=== PATIENT | female | born 1935 | race Caucasian/White ===

== ENCOUNTER 2017-02-12 13:38 | Inpatient (IN) | payer BC, OTHER ==
[~2017-02-12] VITALS: Ht 157.5 cm; Wt 45.5 kg
[2017-02-12 15:07] LABS: Basophils # (auto) 0 uL; Basophils % (auto) 0.2 % (0.0-2.0); Eosinophils # (auto) 0 uL; Eosinophils % (auto) 0.2 % (0.0-7.0); Hematocrit 37.8 % (36.0-46.0); Hemoglobin 12.9 g/dL (12.2-16.2); Lymphocytes % (auto) 9.2 % (10.0-50.0); Mean Corpuscular Hemoglobin 31.3 pg (28.0-32.0); Monocytes % (auto) 9.7 % (0.0-12.0); Neutrophils # (auto) 8.5 uL; Neutrophils % (auto) 80.7 % (37.0-80.0); Platelet Count (auto) 224 10^3/uL (140-450); Red Blood Cells 4.11 10^6/uL (4.0-5.20); Red Cell Distribution Width 13.1 % (11.8-14.3); White Blood Cell 10.5 10^3/uL (4.4-10.8)
[2017-02-12 15:25] LABS: Albumin 2.9 g/dL (3.4-5.0); BUN/Creatinine Ratio 24.5; Bilirubin, Total 0.3 mg/dL (0.2-1.0); Calcium 7.8 mg/dL (8.5-10.1); Magnesium 2.1 mg/dL (1.6-2.6); Potassium 3.5 mmol/L (3.5-5.1); Total Protein 6.5 g/dL (6.4-8.2)
[2017-02-12] MEDS ORDERED: SODIUM CHLORIDE 0.9% 1,000 ML IV ONE (15:57)
[2017-02-12] MEDS ORDERED: METOPROLOL TARTRATE 1MG/1ML-5ML VIAL IV ONE (16:00)
[2017-02-12 16:39] LABS: INR 0.99 (0.9-1.15); Partial Thromboplastin Time 29.5 sec (22.64-33.71); Prothrombin Time 10.8 sec (9.37-12.3)
[2017-02-12] MEDS ORDERED: MORPHINE SULF INJ 2 MG/ML SYRINGE 1ML IV PRN (17:45)
[2017-02-12] MEDS ORDERED: MORPHINE SULFATE 4 MG/ML SYR/VIAL IV PRN (17:45)
[2017-02-12] MEDS ORDERED: AMIODARONE HCL 900 MG in DEXTROSE 500 ML IV SCH ×2 (17:45→23:45)
[2017-02-12] MEDS ORDERED: HYDROcodone-ACET 5/325MG TAB PO PRN (17:45)
[2017-02-12] MEDS ORDERED: LACTULOSE 20Gm/30ML SOLN PO PRN (17:45)
[2017-02-12] MEDS ORDERED: PROMETHAZINE HCL 25 MG/ML 1ML IV PRN (17:45)
[2017-02-12] MEDS ORDERED: LORazepam 0.5 MG TAB PO PRN (17:45)
[2017-02-12] MEDS ORDERED: AMIODARONE HCL 150 MG in D5W 5% 100 ML IV ONE (17:45)
[2017-02-12] MEDS ORDERED: NITROGLYCERIN 0.4 MG SL TAB SL PRN (17:45)
[2017-02-12] MEDS: NITROGLYCERIN 0.2MG/HR TOPICAL PATCH TD SCH (18:11)
[2017-02-12] MEDS: ASPirin 81 mg TAB PO SCH (18:11)
[2017-02-12] MEDS: ENOXAPARIN SOD 60 MG/0.6 ML SYRINGE SC SCH (19:45)
[2017-02-12] MEDS ORDERED: IOHEXOL 350 MG/ML 100ML IJ ONE (20:19)
[2017-02-12] MEDS: ATORVASTATIN 20 MG TAB PO SCH (22:13)
[2017-02-12] MEDS: SODIUM CHLOR 0.9% PF (SALINE LOCK) 10ML VIAL IV SCH (22:13)
[2017-02-12] MEDS: METOPROLOL TARTRATE 25 MG TAB PO SCH (22:13)
[2017-02-13] MEDS: ACETAMINOPHEN 500 MG TAB PO PRN (01:22)
[2017-02-13] MEDS: TEMAZEPAM 15 MG CAP PO PRN (01:22)
[2017-02-13] MEDS ORDERED: methylPREDNISolone SOD SUCC 125 MG/2 ML VL ONE (01:59)
[2017-02-13] MEDS ORDERED: methylPREDNISolone SOD SUCC 125 MG/2 ML VL IV ONE (02:00)
[2017-02-13] MEDS ORDERED: FUROSEMIDE 20 MG/2 ML VIAL ONE (02:04)
[2017-02-13] MEDS ORDERED: FUROSEMIDE 20 MG/2 ML VIAL IV ONE (02:15)
[2017-02-13] MEDS: IPRATROPIUM BROM 0.5 MG/2.5ML INH SOL NEB SCH ×4 (02:53→18:45)
[2017-02-13] MEDS: ALBUTEROL SULF 2.5 MG/0.5ML(0.5%) NEB SOLN NEB SCH ×2 (02:53→06:02)
[2017-02-13 05:22] LABS: Urine Bacteria NONE SEEN /hpf (None Seen); Urine Blood Negative /uL (Negative); Urine WBC 1 /hpf (0 - 5)
[2017-02-13] MEDS: SODIUM CHLOR 0.9% PF (SALINE LOCK) 10ML VIAL IV SCH ×3 (06:00→22:20)
[2017-02-13] MEDS: ENOXAPARIN SOD 60 MG/0.6 ML SYRINGE SC SCH ×2 (06:01→19:43)
[2017-02-13 08:49] VITALS: BP 125/75
[2017-02-13] MEDS ORDERED: ENOXAPARIN SOD 40 MG/0.4 ML SYRINGE SC SCH (10:00)
[2017-02-13] MEDS: ASPirin 81 mg TAB PO SCH (10:21)
[2017-02-13] MEDS: METOPROLOL TARTRATE 25 MG TAB PO SCH (10:21)
[2017-02-13] MEDS ORDERED: POTASSIUM CHL 20 Meq TABLET PO ONE (12:15)
[2017-02-13 12:41] LABS: BUN/Creatinine Ratio 18.9; Calcium 7.8 mg/dL (8.5-10.1); Potassium 3.2 mmol/L (3.5-5.1)
[2017-02-13] MEDS ORDERED: AZITHROMYCIN 500MG/ 250ML 250 ML IV SCH (14:05)
[2017-02-13] MEDS: cefTRIAXone 1GM/10ml IVPUSH 10 ML IV SCH (14:34)
[2017-02-13 17:30] VITALS: BP 127/76
[2017-02-13] MEDS: NITROGLYCERIN 0.2MG/HR TOPICAL PATCH TD SCH (18:00)
[2017-02-13] MEDS: CARVEDILOL 3.125 MG TAB PO SCH ×2 (20:24→22:00)
[2017-02-13 22:00] VITALS: BP 112/68
[2017-02-13] MEDS: ATORVASTATIN 20 MG TAB PO SCH (22:19)
[2017-02-14] MEDS: TEMAZEPAM 15 MG CAP PO PRN (00:25)
[2017-02-14] MEDS: IPRATROPIUM BROM 0.5 MG/2.5ML INH SOL NEB SCH ×3 (00:28→12:25)
[2017-02-14 05:00] VITALS: BP 131/91
[2017-02-14] MEDS: SODIUM CHLOR 0.9% PF (SALINE LOCK) 10ML VIAL IV SCH (06:00)
[2017-02-14] MEDS: ENOXAPARIN SOD 60 MG/0.6 ML SYRINGE SC SCH (06:51)
[2017-02-14 08:00] VITALS: BP 153/94
[2017-02-14 08:46] VITALS: BP 153/94
[2017-02-14 08:48] VITALS: BP 153/94
[2017-02-14] MEDS: cefTRIAXone 1GM/10ml IVPUSH 10 ML IV SCH (09:00)
[2017-02-14] MEDS: CARVEDILOL 3.125 MG TAB PO SCH (09:40)
[2017-02-14] MEDS: ASPirin 81 mg TAB PO SCH (09:41)
[2017-02-14] MEDS: ACETAMINOPHEN 500 MG TAB PO PRN (09:41)
[2017-02-15] MEDS ORDERED: AZITHROMYCIN 250 MG TAB PO SCH (10:00)
== END 2017-02-14 12:45 | disposition home or self-care (01) | DRG 191 ==
LOC: ER 13:50 → TELE 13:51 → TELE-CENTR 02-13 17:26
PROVIDERS: ADMIT Internal Medicine; ATTEND Internal Medicine
DX: J44.0 Chronic obstructive pulmonary disease with (acute) lower respiratory infection (principal); E44.0 Moderate protein-calorie malnutrition; I44.7 Left bundle-branch block, unspecified; I47.1 Supraventricular tachycardia; Z68.1 Body mass index [BMI] 19.9 or less, adult; J20.9 Acute bronchitis, unspecified; I10 Essential (primary) hypertension; J44.1 Chronic obstructive pulmonary disease with (acute) exacerbation; I25.10 Atherosclerotic heart disease of native coronary artery without angina pectoris; M19.90 Unspecified osteoarthritis, unspecified site; Z95.0 Presence of cardiac pacemaker; Z79.82 Long term (current) use of aspirin; Z79.899 Other long term (current) drug therapy; Z87.891 Personal history of nicotine dependence
CPT/HCPCS: 36415; 51702; 71010; 71020; 71275; 80048; 80053; 80061; 81001; 82550; 83735; 83880; 84443; 84484; 85025; 85379; 85610; 85652; 85730; 86141; 87400; 93005; 93306; 94640; 94761; 96372; 96374; 96375; 96376; J7060

== ENCOUNTER 2017-06-28 03:40 | Inpatient (IN) | payer BC ==
[~2017-06-28] VITALS: Ht 149.9 cm; Wt 46.0 kg
[2017-06-28 07:25] LABS: INR 1.01 (0.9-1.15); Partial Thromboplastin Time 26.2 sec (22.64-33.71)
[2017-06-28 07:26] LABS: Basophils # (auto) 0 uL; Basophils % (auto) 0.4 % (0.0-2.0); Eosinophils # (auto) 0.1 uL; Hematocrit 34.1 % (36.0-46.0); Hemoglobin 11.6 g/dL (12.2-16.2); Lymphocytes # (auto) 0.7 uL; Lymphocytes % (auto) 9.3 % (10.0-50.0); Mean Corpuscular Hgb Conc. 33.9 g/dL (32.0-36.0); Mean Corpuscular Volume 91.3 fL (80.0-100.0); Monocytes # (auto) 0.5 uL; Monocytes % (auto) 6.3 % (0.0-12.0); Platelet Count (auto) 227 10^3/uL (140-450); Red Blood Cells 3.73 10^6/uL (4.0-5.20); Red Cell Distribution Width 13.6 % (11.8-14.3); White Blood Cell 7.2 10^3/uL (4.4-10.8)
[2017-06-28 07:28] LABS: Alanine Aminotransferase 51 U/L (13-56); Albumin 3.1 g/dL (3.4-5.0); Anion Gap 8 (5-15); Aspartate Aminotransferase 41 U/L (15-37); BUN/Creatinine Ratio 17.1; Blood Urea Nitrogen 12 mg/dL (7-18); Calcium 8.2 mg/dL (8.5-10.1); Carbon Dioxide 25 mmol/L (21-32); Chloride 108 mmol/L (98-107); GFR African American 103 mL/min; GFR Non-African American 85 mL/min; Glucose 108 mg/dL (74-106); Magnesium 2.1 mg/dL (1.6-2.6); Potassium 3.5 mmol/L (3.5-5.1); Sodium 141 mmol/L (136-145)
[2017-06-28 07:33] LABS: Alkaline Phosphatase 68 U/L (45-117); Bilirubin, Total 0.4 mg/dL (0.2-1.0); Total Protein 6.1 g/dL (6.4-8.2)
[2017-06-28] MEDS ORDERED: LEVOFLOXACIN 500MG 100 ML IV ONE (09:15)
[2017-06-28] MEDS ORDERED: ALBUTEROL SULF 2.5 MG/0.5ML(0.5%) NEB SOLN NEB ONE (09:15)
[2017-06-28] MEDS ORDERED: IPRATROPIUM BROM 0.5 MG/2.5ML INH SOL NEB ONE (09:15)
[2017-06-28] MEDS ORDERED: methylPREDNISolone SOD SUCC 125 MG/2 ML VL IV ONE (09:15)
[2017-06-28] MEDS ORDERED: AZITHROMYCIN 500MG/ 250ML 250 ML IV ONE (10:15)
[2017-06-28] MEDS ORDERED: FUROSEMIDE 40 MG/4 ML VIAL IV ONE (10:15)
[2017-06-28] MEDS ORDERED: cefTRIAXone 1GM/10ml IVPUSH 10 ML IV ONE (10:15)
[2017-06-28] MEDS ORDERED: POTASSIUM CHL 10 Meq TABLET PO ONE (10:15)
[2017-06-28] MEDS ORDERED: ALENDRONATE SODIUM 10 MG TAB PO SCH (10:15)
[2017-06-28] MEDS ORDERED: MORPHINE SULFATE 4 MG/ML SYR/VIAL IV PRN ×2 (10:30)
[2017-06-28] MEDS ORDERED: NITROGLYCERIN 0.4 MG SL TAB SL PRN (10:30)
[2017-06-28] MEDS ORDERED: ONDANSETRON HCL 4 MG/2 ML VIAL IV PRN (10:30)
[2017-06-28] MEDS ORDERED: ACETAMINOPHEN 325 MG TAB PO PRN (10:30)
[2017-06-28] MEDS ORDERED: DOCUSATE SOD 100 MG CAP PO PRN (10:30)
[2017-06-28] MEDS: MULTIPLE VITAMIN TAB PO SCH (11:01)
[2017-06-28] MEDS: FAMOTIDINE 20 MG TAB PO SCH (11:01)
[2017-06-28] MEDS: ALBUTEROL SULF 2.5 MG/0.5ML(0.5%) NEB SOLN NEB SCH ×2 (11:58→19:16)
[2017-06-28] MEDS: IPRATROPIUM BROM 0.5 MG/2.5ML INH SOL NEB SCH ×2 (11:58→19:16)
[2017-06-28] MEDS: SODIUM CHLOR 0.9% PF (SALINE LOCK) 10ML VIAL/SYR IV SCH ×2 (12:23→21:46)
[2017-06-28] MEDS: BOOST PLUS 8 ounce PO SCH ×2 (12:23→18:00)
[2017-06-28 14:08] LABS: Lactic Acid w/Reflex 2.4 mmol/L (0.4-2.0)
[2017-06-28 14:11] VITALS: BP 145/88
[2017-06-28 14:26] VITALS: BP 116/57
[2017-06-28] MEDS ORDERED: AMLO5TAB2 PO (14:34)
[2017-06-28] MEDS ORDERED: ATEN-60 PO (14:34)
[2017-06-28] MEDS ORDERED: HYDR-4683 PO (14:34)
[2017-06-28] MEDS ORDERED: ASPirin-EC 81 mg tab PO ONE (16:15)
[2017-06-28 16:45] VITALS: BP 118/68
[2017-06-28 21:21] VITALS: BP 116/63
[2017-06-28] MEDS: AMITRIPTYLINE HCL 25 MG TAB PO SCH (21:47)
[2017-06-28] MEDS: TEMAZEPAM 15 MG CAP PO PRN (21:47)
[2017-06-28] MEDS: ATORVASTATIN 20 MG TAB PO SCH (21:47)
[2017-06-28] MEDS: HYDROcodone-ACET 5/325MG TAB PO PRN (23:41)
[2017-06-29] MEDS: ALBUTEROL SULF 2.5 MG/0.5ML(0.5%) NEB SOLN NEB SCH ×4 (00:27→19:06)
[2017-06-29] MEDS: IPRATROPIUM BROM 0.5 MG/2.5ML INH SOL NEB SCH ×4 (00:27→19:06)
[2017-06-29 05:08] VITALS: BP 106/62
[2017-06-29 06:02] LABS: Basophils # (auto) 0 uL; Basophils % (auto) 0.2 % (0.0-2.0); Eosinophils # (auto) 0 uL; Eosinophils % (auto) 0.2 % (0.0-7.0); Hematocrit 31.3 % (36.0-46.0); Hemoglobin 10.8 g/dL (12.2-16.2); Lymphocytes # (auto) 0.9 uL; Lymphocytes % (auto) 14.5 % (10.0-50.0); Mean Corpuscular Hemoglobin 31.3 pg (28.0-32.0); Mean Corpuscular Hgb Conc. 34.4 g/dL (32.0-36.0); Mean Corpuscular Volume 91.2 fL (80.0-100.0); Monocytes # (auto) 0.6 uL; Monocytes % (auto) 10.1 % (0.0-12.0); Neutrophils # (auto) 4.7 uL; Nucleated Red Blood Cells % 0.1 %; Platelet Count (auto) 224 10^3/uL (140-450); Red Blood Cells 3.43 10^6/uL (4.0-5.20); Red Cell Distribution Width 13.8 % (11.8-14.3); White Blood Cell 6.3 10^3/uL (4.4-10.8)
[2017-06-29] MEDS: SODIUM CHLOR 0.9% PF (SALINE LOCK) 10ML VIAL/SYR IV SCH ×3 (06:04→21:35)
[2017-06-29 06:09] LABS: Calcium 8.7 mg/dL (8.5-10.1); Potassium 3.4 mmol/L (3.5-5.1)
[2017-06-29 06:12] LABS: BUN/Creatinine Ratio 17.5
[2017-06-29 06:14] LABS: Bilirubin, Total 0.2 mg/dL (0.2-1.0); Total Protein 5.8 g/dL (6.4-8.2)
[2017-06-29 08:00] VITALS: BP 119/75
[2017-06-29] MEDS: BOOST PLUS 8 ounce PO SCH ×2 (08:00→12:00)
[2017-06-29 08:53] VITALS: BP 119/75
[2017-06-29] MEDS: cefTRIAXone 1GM/10ml IVPUSH 10 ML IV SCH (08:59)
[2017-06-29] MEDS ORDERED: REGADENOSON 0.4 MG/5 ML SYRG IV ONE (09:45)
[2017-06-29] MEDS: POTASSIUM CHL 10 Meq TABLET PO SCH (10:00)
[2017-06-29] MEDS: ASPirin 81 mg TAB PO SCH (10:00)
[2017-06-29] MEDS: ASPirin-EC 81 mg tab PO SCH (10:00)
[2017-06-29] MEDS: FUROSEMIDE 40 MG/4 ML VIAL IV SCH (11:28)
[2017-06-29] MEDS: FAMOTIDINE 20 MG TAB PO SCH (11:28)
[2017-06-29] MEDS: AZITHROMYCIN 500MG/ 250ML 250 ML IV SCH (11:28)
[2017-06-29] MEDS: MULTIPLE VITAMIN TAB PO SCH (11:29)
[2017-06-29] MEDS: ATENOLOL 25 MG TAB PO SCH (11:29)
[2017-06-29 12:35] LABS: Urine Bacteria NONE SEEN /hpf (None Seen); Urine Blood Negative /uL (Negative); Urine Specific Gravity 1.008 (1.001-1.035); Urine WBC 1 /hpf (0 - 5)
[2017-06-29 13:00] VITALS: BP 127/77
[2017-06-29] MEDS ORDERED: POTASSIUM CHL 10 Meq TABLET PO ONE (13:15)
[2017-06-29] MEDS: HYDROcodone-ACET 5/325MG TAB PO PRN (16:23)
[2017-06-29 17:00] VITALS: BP 118/83
[2017-06-29 20:50] VITALS: BP 119/44
[2017-06-29] MEDS: TEMAZEPAM 15 MG CAP PO PRN (21:35)
[2017-06-29] MEDS: AMITRIPTYLINE HCL 25 MG TAB PO SCH (21:35)
[2017-06-29] MEDS: ATORVASTATIN 20 MG TAB PO SCH (21:35)
[2017-06-30] MEDS: HYDROcodone-ACET 5/325MG TAB PO PRN ×3 (00:13→22:24)
[2017-06-30] MEDS: IPRATROPIUM BROM 0.5 MG/2.5ML INH SOL NEB SCH ×5 (01:35→22:26)
[2017-06-30] MEDS: ALBUTEROL SULF 2.5 MG/0.5ML(0.5%) NEB SOLN NEB SCH ×5 (01:35→22:25)
[2017-06-30 04:57] VITALS: BP 98/59
[2017-06-30 06:09] LABS: Basophils # (auto) 0 uL; Basophils % (auto) 0.5 % (0.0-2.0); Eosinophils # (auto) 0.2 uL; Eosinophils % (auto) 3.1 % (0.0-7.0); Hematocrit 31.9 % (36.0-46.0); Lymphocytes % (auto) 29.2 % (10.0-50.0); Mean Corpuscular Hemoglobin 31.6 pg (28.0-32.0); Mean Corpuscular Hgb Conc. 34.4 g/dL (32.0-36.0); Mean Corpuscular Volume 91.6 fL (80.0-100.0); Monocytes # (auto) 0.6 uL; Monocytes % (auto) 9.4 % (0.0-12.0); Neutrophils # (auto) 3.9 uL; Neutrophils % (auto) 57.8 % (37.0-80.0); Nucleated Red Blood Cells % 0.2 %; Platelet Count (auto) 218 10^3/uL (140-450); Red Blood Cells 3.48 10^6/uL (4.0-5.20); Red Cell Distribution Width 14.2 % (11.8-14.3); White Blood Cell 6.8 10^3/uL (4.4-10.8)
[2017-06-30] MEDS: SODIUM CHLOR 0.9% PF (SALINE LOCK) 10ML VIAL/SYR IV SCH ×3 (06:09→21:37)
[2017-06-30 06:12] LABS: Calcium 8.8 mg/dL (8.5-10.1); Potassium 4.3 mmol/L (3.5-5.1)
[2017-06-30 06:14] LABS: BUN/Creatinine Ratio 19.2
[2017-06-30] MEDS: BOOST PLUS 8 ounce PO SCH ×4 (07:37→18:00)
[2017-06-30 07:39] VITALS: BP 111/69
[2017-06-30] MEDS: cefTRIAXone 1GM/10ml IVPUSH 10 ML IV SCH (09:06)
[2017-06-30] MEDS: MULTIPLE VITAMIN TAB PO SCH (09:07)
[2017-06-30] MEDS: ASPirin 81 mg TAB PO SCH (09:07)
[2017-06-30] MEDS: FAMOTIDINE 20 MG TAB PO SCH (09:07)
[2017-06-30] MEDS: ASPirin-EC 81 mg tab PO SCH (09:07)
[2017-06-30] MEDS: POTASSIUM CHL 10 Meq TABLET PO SCH (09:07)
[2017-06-30] MEDS: AZITHROMYCIN 500MG/ 250ML 250 ML IV SCH (09:07)
[2017-06-30] MEDS ORDERED: OPTISON 3ml Vial for INJ IV ONE (10:31)
[2017-06-30] MEDS: ATENOLOL 25 MG TAB PO SCH (11:14)
[2017-06-30] MEDS: FUROSEMIDE 40 MG/4 ML VIAL IV SCH (11:14)
[2017-06-30 11:16] VITALS: BP 103/76
[2017-06-30] MEDS: guaiFENesin 200 MG/10 ML UD GT PRN (17:12)
[2017-06-30 17:45] VITALS: BP 110/70
[2017-06-30 21:38] VITALS: BP 118/79
[2017-06-30] MEDS: AMITRIPTYLINE HCL 25 MG TAB PO SCH (21:38)
[2017-06-30] MEDS: ATORVASTATIN 20 MG TAB PO SCH (21:38)
[2017-06-30] MEDS: TEMAZEPAM 15 MG CAP PO PRN (21:38)
[2017-07-01] MEDS: HYDROcodone-ACET 5/325MG TAB PO PRN ×2 (04:28→21:48)
[2017-07-01 04:29] VITALS: BP 117/76
[2017-07-01] MEDS: SODIUM CHLOR 0.9% PF (SALINE LOCK) 10ML VIAL/SYR IV SCH ×3 (06:04→22:00)
[2017-07-01] MEDS: ALBUTEROL SULF 2.5 MG/0.5ML(0.5%) NEB SOLN NEB SCH ×3 (06:26→18:35)
[2017-07-01] MEDS: IPRATROPIUM BROM 0.5 MG/2.5ML INH SOL NEB SCH ×3 (06:26→18:35)
[2017-07-01] MEDS: BOOST PLUS 8 ounce PO SCH ×3 (08:00→18:00)
[2017-07-01 08:42] VITALS: BP 118/77
[2017-07-01] MEDS: FAMOTIDINE 20 MG TAB PO SCH (09:44)
[2017-07-01] MEDS: AZITHROMYCIN 500MG/ 250ML 250 ML IV SCH (09:44)
[2017-07-01] MEDS: ASPirin-EC 81 mg tab PO SCH (09:44)
[2017-07-01] MEDS: cefTRIAXone 1GM/10ml IVPUSH 10 ML IV SCH (09:44)
[2017-07-01] MEDS: MULTIPLE VITAMIN TAB PO SCH (09:45)
[2017-07-01] MEDS: POTASSIUM CHL 10 Meq TABLET PO SCH (09:46)
[2017-07-01] MEDS: ATENOLOL 25 MG TAB PO SCH (09:46)
[2017-07-01] MEDS: FUROSEMIDE 40 MG/4 ML VIAL IV SCH (10:03)
[2017-07-01 11:51] VITALS: BP 126/80
[2017-07-01] MEDS ORDERED: LIDOCAINE 2%HCL (LOCAL ANESTH.) INJ 20ML MDV ONE (12:31)
[2017-07-01] MEDS ORDERED: ANGIOMAX 250 MG VIAL IV ONE (13:31)
[2017-07-01] MEDS ORDERED: SODIUM CHL 0.9% 0 ML ONE (13:32)
[2017-07-01] MEDS ORDERED: MIDAZOLAM HCL 1MG/1ML-2 ML VIAL ONE (13:32)
[2017-07-01] MEDS ORDERED: fentaNYL CITRATE 100 MCG/2 ML VL ONE (13:32)
[2017-07-01] MEDS ORDERED: VERAPAMIL 2.5MG/ML INJ 2ML VIAL IV ONE (13:38)
[2017-07-01] MEDS ORDERED: HEPARIN 1,000 UNITS/ml 1ML VIAL ONE ×2 (13:59)
[2017-07-01 16:43] VITALS: BP 97/68
[2017-07-01] MEDS ORDERED: MORPHINE SULFATE 8mg/ml INJ SDV IV PRN ×2 (17:00)
[2017-07-01 20:00] VITALS: BP 110/75
[2017-07-01 21:37] VITALS: BP 110/75
[2017-07-01] MEDS: AMITRIPTYLINE HCL 25 MG TAB PO SCH (21:43)
[2017-07-01] MEDS: TEMAZEPAM 15 MG CAP PO PRN (21:43)
[2017-07-01] MEDS: ATORVASTATIN 20 MG TAB PO SCH (21:43)
[2017-07-02] VITALS (7 sets, daily range): BP systolic 104–122; BP diastolic 57–81
[2017-07-02] MEDS: ALBUTEROL SULF 2.5 MG/0.5ML(0.5%) NEB SOLN NEB SCH ×4 (01:30→19:50)
[2017-07-02] MEDS: IPRATROPIUM BROM 0.5 MG/2.5ML INH SOL NEB SCH ×4 (01:30→19:50)
[2017-07-02] MEDS: guaiFENesin 200 MG/10 ML UD GT PRN (02:28)
[2017-07-02] MEDS: SODIUM CHLOR 0.9% PF (SALINE LOCK) 10ML VIAL/SYR IV SCH ×3 (05:48→21:47)
[2017-07-02] MEDS: BOOST PLUS 8 ounce PO SCH ×3 (08:00→18:00)
[2017-07-02] MEDS: MULTIPLE VITAMIN TAB PO SCH (09:58)
[2017-07-02] MEDS: ATENOLOL 25 MG TAB PO SCH (10:00)
[2017-07-02] MEDS: FAMOTIDINE 20 MG TAB PO SCH (10:00)
[2017-07-02] MEDS: POTASSIUM CHL 10 Meq TABLET PO SCH (10:00)
[2017-07-02] MEDS: FUROSEMIDE 40 MG/4 ML VIAL IV SCH (10:00)
[2017-07-02] MEDS: ASPirin-EC 81 mg tab PO SCH (10:01)
[2017-07-02] MEDS: PANTOPRAZOLE 40 MG TAB PO SCH (12:13)
[2017-07-02] MEDS: ATORVASTATIN 20 MG TAB PO SCH (21:18)
[2017-07-02] MEDS: AMITRIPTYLINE HCL 25 MG TAB PO SCH (21:18)
[2017-07-02] MEDS: HYDROcodone-ACET 5/325MG TAB PO PRN (21:22)
[2017-07-02] MEDS: TEMAZEPAM 15 MG CAP PO PRN (22:55)
[2017-07-03] MEDS: IPRATROPIUM BROM 0.5 MG/2.5ML INH SOL NEB SCH ×4 (00:15→18:22)
[2017-07-03] MEDS: ALBUTEROL SULF 2.5 MG/0.5ML(0.5%) NEB SOLN NEB SCH ×4 (00:15→18:22)
[2017-07-03 05:00] VITALS: BP 90/51
[2017-07-03] MEDS: SODIUM CHLOR 0.9% PF (SALINE LOCK) 10ML VIAL/SYR IV SCH ×3 (05:53→21:59)
[2017-07-03 06:27] LABS: Basophils # (auto) 0.1 uL; Basophils % (auto) 0.8 % (0.0-2.0); Eosinophils # (auto) 0.3 uL; Eosinophils % (auto) 4.5 % (0.0-7.0); Hemoglobin 11.6 g/dL (12.2-16.2); Lymphocytes # (auto) 1.7 uL; Lymphocytes % (auto) 21.8 % (10.0-50.0); Mean Corpuscular Hemoglobin 31.6 pg (28.0-32.0); Mean Corpuscular Hgb Conc. 34.2 g/dL (32.0-36.0); Mean Corpuscular Volume 92.2 fL (80.0-100.0); Monocytes # (auto) 0.8 uL; Monocytes % (auto) 9.8 % (0.0-12.0); Neutrophils # (auto) 4.9 uL; Neutrophils % (auto) 63.1 % (37.0-80.0); Nucleated Red Blood Cells % 0.1 %; Platelet Count (auto) 260 10^3/uL (140-450); Red Blood Cells 3.69 10^6/uL (4.0-5.20); Red Cell Distribution Width 13.9 % (11.8-14.3); White Blood Cell 7.7 10^3/uL (4.4-10.8)
[2017-07-03 06:36] LABS: BUN/Creatinine Ratio 27.1; Calcium 8.5 mg/dL (8.5-10.1); Potassium 3.7 mmol/L (3.5-5.1)
[2017-07-03 07:54] VITALS: BP 118/77
[2017-07-03] MEDS: BOOST PLUS 8 ounce PO SCH ×3 (08:00→20:28)
[2017-07-03] MEDS: FAMOTIDINE 20 MG TAB PO SCH (10:00)
[2017-07-03] MEDS: ASPirin-EC 81 mg tab PO SCH (10:00)
[2017-07-03] MEDS: MULTIPLE VITAMIN TAB PO SCH (10:26)
[2017-07-03] MEDS: PANTOPRAZOLE 40 MG TAB PO SCH (10:27)
[2017-07-03] MEDS: ATENOLOL 25 MG TAB PO SCH (10:37)
[2017-07-03] MEDS: FUROSEMIDE 40 MG/4 ML VIAL IV SCH (10:38)
[2017-07-03] MEDS: POTASSIUM CHL 10 Meq TABLET PO SCH (10:38)
[2017-07-03 12:11] VITALS: BP 115/82
[2017-07-03 17:19] VITALS: BP 112/76
[2017-07-03 21:34] VITALS: BP 115/80
[2017-07-03] MEDS: SODIUM CHLORIDE 0.9% 1,000 ML IV SCH (21:59)
[2017-07-03] MEDS: TEMAZEPAM 15 MG CAP PO PRN (21:59)
[2017-07-03] MEDS: ATORVASTATIN 20 MG TAB PO SCH (21:59)
[2017-07-03] MEDS: AMITRIPTYLINE HCL 25 MG TAB PO SCH (22:00)
[2017-07-03] MEDS: HYDROcodone-ACET 5/325MG TAB PO PRN (22:00)
[2017-07-04] MEDS: ALBUTEROL SULF 2.5 MG/0.5ML(0.5%) NEB SOLN NEB SCH ×3 (00:10→11:05)
[2017-07-04] MEDS: IPRATROPIUM BROM 0.5 MG/2.5ML INH SOL NEB SCH ×3 (00:10→11:05)
[2017-07-04 04:47] VITALS: BP 95/67
[2017-07-04] MEDS: SODIUM CHLOR 0.9% PF (SALINE LOCK) 10ML VIAL/SYR IV SCH ×2 (05:40→15:00)
[2017-07-04 05:52] LABS: Basophils # (auto) 0 uL; Basophils % (auto) 0.6 % (0.0-2.0); Eosinophils # (auto) 0.3 uL; Eosinophils % (auto) 5.2 % (0.0-7.0); Hematocrit 33.5 % (36.0-46.0); Hemoglobin 11.5 g/dL (12.2-16.2); Lymphocytes # (auto) 1.6 uL; Lymphocytes % (auto) 25.7 % (10.0-50.0); Mean Corpuscular Hemoglobin 31.3 pg (28.0-32.0); Mean Corpuscular Hgb Conc. 34.3 g/dL (32.0-36.0); Mean Corpuscular Volume 91.1 fL (80.0-100.0); Monocytes # (auto) 0.6 uL; Monocytes % (auto) 10.5 % (0.0-12.0); Neutrophils # (auto) 3.5 uL; Nucleated Red Blood Cells % 0.1 %; Platelet Count (auto) 278 10^3/uL (140-450); Red Blood Cells 3.68 10^6/uL (4.0-5.20); Red Cell Distribution Width 13.8 % (11.8-14.3); White Blood Cell 6.1 10^3/uL (4.4-10.8)
[2017-07-04 06:06] LABS: INR 0.97 (0.9-1.15); Partial Thromboplastin Time 25.8 sec (23.78-33.04); Prothrombin Time 10.4 sec (9.27-12.13)
[2017-07-04 06:11] LABS: BUN/Creatinine Ratio 22.9; Calcium 8.5 mg/dL (8.5-10.1); Potassium 3.9 mmol/L (3.5-5.1)
[2017-07-04 08:00] VITALS: BP 118/79
[2017-07-04] MEDS: BOOST PLUS 8 ounce PO SCH ×2 (08:00→15:00)
[2017-07-04] MEDS ORDERED: IOHEXOL 350 MG/ML 100ML IJ ONE (08:51)
[2017-07-04] MEDS ORDERED: LIDOCAINE 2%HCL (LOCAL ANESTH.) INJ 20ML MDV ONE (08:52)
[2017-07-04 09:00] VITALS: BP 118/79
[2017-07-04] MEDS ORDERED: VANCOMYCIN 1GM/250ML 250 ML IV ONE ×2 (09:15→09:25)
[2017-07-04 10:00] VITALS: BP 118/79
[2017-07-04] MEDS: ATENOLOL 25 MG TAB PO SCH (10:00)
[2017-07-04] MEDS: ASPirin-EC 81 mg tab PO SCH (10:00)
[2017-07-04] MEDS: PANTOPRAZOLE 40 MG TAB PO SCH (10:00)
[2017-07-04] MEDS: MULTIPLE VITAMIN TAB PO SCH (10:00)
[2017-07-04] MEDS: POTASSIUM CHL 10 Meq TABLET PO SCH (10:00)
[2017-07-04] MEDS: FUROSEMIDE 40 MG/4 ML VIAL IV SCH (10:00)
[2017-07-04] MEDS: FAMOTIDINE 20 MG TAB PO SCH (10:00)
[2017-07-04] MEDS ORDERED: fentaNYL CITRATE 100 MCG/2 ML VL ONE (10:45)
[2017-07-04] MEDS ORDERED: VANCOMYCIN HCL 1000 MG VL ONE ×2 (10:45→10:52)
[2017-07-04] MEDS ORDERED: MIDAZOLAM HCL 1MG/1ML-2 ML VIAL ONE (10:45)
[2017-07-04] MEDS ORDERED: BACITRACIN INJ 50000 UNIT VIAL ONE (10:46)
[2017-07-04] MEDS: SODIUM CHLORIDE 0.9% 1,000 ML IV SCH (11:40)
[2017-07-04 14:23] VITALS: BP 118/79
== END 2017-07-04 17:00 | disposition home or self-care (01) | DRG 871 ==
LOC: EDBD 03:40 → ER 03:45 → TELE 03:46 → TELE-EAST 14:22
PROVIDERS: ADMIT Internal Medicine; ATTEND Internal Medicine
PROC: 4A023N7 Measurement of Cardiac Sampling and Pressure, Left Heart, Percutaneous Approach (ICD-10-PCS; principal; 2017-07-01)
PROC: B2111ZZ Fluoroscopy of Multiple Coronary Arteries using Low Osmolar Contrast (ICD-10-PCS; 2017-07-01)
DX: A41.9 Sepsis, unspecified organism (principal); I50.43 Acute on chronic combined systolic (congestive) and diastolic (congestive) heart failure; I44.2 Atrioventricular block, complete; J18.9 Pneumonia, unspecified organism; E44.0 Moderate protein-calorie malnutrition; J44.0 Chronic obstructive pulmonary disease with (acute) lower respiratory infection; E83.51 Hypocalcemia; I13.0 Hypertensive heart and chronic kidney disease with heart failure and stage 1 through stage 4 chronic kidney disease, or unspecified chronic kidney disease; I08.1 Rheumatic disorders of both mitral and tricuspid valves; I42.9 Cardiomyopathy, unspecified; J45.901 Unspecified asthma with (acute) exacerbation; J44.1 Chronic obstructive pulmonary disease with (acute) exacerbation; D63.8 Anemia in other chronic diseases classified elsewhere; N18.2 Chronic kidney disease, stage 2 (mild); I25.10 Atherosclerotic heart disease of native coronary artery without angina pectoris; F17.200 Nicotine dependence, unspecified, uncomplicated; E78.5 Hyperlipidemia, unspecified; Z88.0 Allergy status to penicillin; Z80.9 Family history of malignant neoplasm, unspecified; Z83.3 Family history of diabetes mellitus; Z82.49 Family history of ischemic heart disease and other diseases of the circulatory system; Z79.899 Other long term (current) drug therapy; Z95.810 Presence of automatic (implantable) cardiac defibrillator; Z68.20 Body mass index [BMI] 20.0-20.9, adult
CPT/HCPCS: 36415; 36600; 71045; 80048; 80053; 81001; 82805; 83605; 83735; 83880; 84484; 85025; 85610; 85730; 86850; 86900; 86901; 87040; 87086; 93005; 93306; 93458; 94640; 96365; 96375; 99152; 99291; J1956; J2250; Q9956

== ENCOUNTER 2017-07-04 21:02 | Inpatient (IN) | payer BC ==
[~2017-07-04] VITALS: Ht 149.9 cm; Wt 44.0 kg
[~2017-07-04 21:02] MED LIST: AMLO5TAB2 PO; ATEN-60 PO; HYDR-4683 PO
[2017-07-04] MEDS ORDERED: IPRATROPIUM BROM 0.5 MG/2.5ML INH SOL HHN ONE (21:30)
[2017-07-04] MEDS ORDERED: methylPREDNISolone SOD SUCC 125 MG/2 ML VL IV ONE ×2 (21:30)
[2017-07-04] MEDS ORDERED: ALBUTEROL SULF 2.5 MG/0.5ML(0.5%) NEB SOLN HHN ONE (21:30)
[2017-07-04] MEDS ORDERED: DILTIAZEM HCL 25 MG/5 ML VIAL IV ONE (21:30)
[2017-07-04] MEDS ORDERED: LORazepam 2MG/ML-1ML VIAL ONE (21:37)
[2017-07-04] MEDS ORDERED: METOPROLOL TARTRATE 1MG/1ML-5ML VIAL IV ONE ×2 (21:45→21:48)
[2017-07-04] MEDS ORDERED: LORazepam 2MG/ML-1ML VIAL IV ONE (21:45)
[2017-07-04 22:07] LABS: Alanine Aminotransferase 54 U/L (13-56); Albumin 3.4 g/dL (3.4-5.0); Anion Gap 9 (5-15); Aspartate Aminotransferase 28 U/L (15-37); BUN/Creatinine Ratio 20.2; Blood Urea Nitrogen 18 mg/dL (7-18); Calcium 8.5 mg/dL (8.5-10.1); Carbon Dioxide 24 mmol/L (21-32); Chloride 108 mmol/L (98-107); GFR African American 78 mL/min; GFR Non-African American 64 mL/min; Glucose 208 mg/dL (74-106); Magnesium 2.5 mg/dL (1.6-2.6); Sodium 141 mmol/L (136-145)
[2017-07-04 22:08] LABS: Lactic Acid w/Reflex 2.9 mmol/L (0.4-2.0)
[2017-07-04 22:10] LABS: Potassium 5.8 mmol/L (3.5-5.1)
[2017-07-04 22:12] LABS: Alkaline Phosphatase 84 U/L (45-117); Bilirubin, Total 0.4 mg/dL (0.2-1.0); Total Protein 6.9 g/dL (6.4-8.2)
[2017-07-04 22:24] LABS: Basophils # (auto) 0.1 uL; Basophils % (auto) 0.5 % (0.0-2.0); Eosinophils # (auto) 0.2 uL; Eosinophils % (auto) 1.6 % (0.0-7.0); Hematocrit 38.8 % (36.0-46.0); Hemoglobin 12.6 g/dL (12.2-16.2); Lymphocytes # (auto) 2.2 uL; Lymphocytes % (auto) 18.3 % (10.0-50.0); Mean Corpuscular Hemoglobin 30.4 pg (28.0-32.0); Mean Corpuscular Hgb Conc. 32.6 g/dL (32.0-36.0); Mean Corpuscular Volume 93.2 fL (80.0-100.0); Monocytes # (auto) 0.9 uL; Monocytes % (auto) 7.4 % (0.0-12.0); Neutrophils # (auto) 8.6 uL; Neutrophils % (auto) 72.2 % (37.0-80.0); Nucleated Red Blood Cells % 0.1 %; Platelet Count (auto) 339 10^3/uL (140-450); Red Blood Cells 4.16 10^6/uL (4.0-5.20); Red Cell Distribution Width 13.9 % (11.8-14.3); White Blood Cell 11.9 10^3/uL (4.4-10.8)
[2017-07-05] MEDS ORDERED: InsuLIN REG 1unit/0.01ml Soln (100units/ml) IV ONE (00:30)
[2017-07-05] MEDS ORDERED: NITROGLYCERIN 0.2MG/HR TOPICAL PATCH TD ONE (00:30)
[2017-07-05] MEDS ORDERED: DEXTROSE (50%) 50ML SYRG IV ONE (00:30)
[2017-07-05] MEDS ORDERED: ENALAPRILAT 1.25 MG/ML-1ML VIAL IV ONE (00:30)
[2017-07-05] MEDS ORDERED: FUROSEMIDE 20 MG/2 ML VIAL IV ONE ×2 (02:00→10:45)
[2017-07-05] MEDS ORDERED: ACETAMINOPHEN 500 MG TAB PO PRN (02:15)
[2017-07-05] MEDS ORDERED: MORPHINE SULFATE 4 MG/ML SYR/VIAL IV PRN ×2 (02:15)
[2017-07-05] MEDS ORDERED: ONDANSETRON HCL 4 MG/2 ML VIAL IV PRN (02:15)
[2017-07-05] MEDS ORDERED: LORazepam 2MG/ML-1ML VIAL IV PRN (02:15)
[2017-07-05] MEDS ORDERED: NITROGLYCERIN 0.4 MG SL TAB SL PRN (02:15)
[2017-07-05] MEDS ORDERED: HYDROcodone-ACET 5/325MG TAB PO PRN (02:15)
[2017-07-05 02:32] VITALS: BP 138/86
[2017-07-05 02:44] VITALS: BP 138/86
[2017-07-05 04:00] LABS: Urine Bacteria NONE SEEN /hpf (None Seen); Urine Blood Negative /uL (Negative); Urine Hyaline Cast FEW /lpf (0 - 2); Urine Specific Gravity 1.028 (1.001-1.035); Urine WBC 2 /hpf (0 - 5)
[2017-07-05 05:01] LABS: Basophils # (auto) 0.1 uL; Basophils % (auto) 0.5 % (0.0-2.0); Eosinophils # (auto) 0 uL; Hematocrit 34.7 % (36.0-46.0); Hemoglobin 11.7 g/dL (12.2-16.2); Lymphocytes # (auto) 0.4 uL; Lymphocytes % (auto) 4.1 % (10.0-50.0); Mean Corpuscular Hgb Conc. 33.8 g/dL (32.0-36.0); Mean Corpuscular Volume 91.7 fL (80.0-100.0); Monocytes # (auto) 0.2 uL; Monocytes % (auto) 1.5 % (0.0-12.0); Neutrophils # (auto) 9.9 uL; Neutrophils % (auto) 93.9 % (37.0-80.0); Platelet Count (auto) 282 10^3/uL (140-450); Red Blood Cells 3.79 10^6/uL (4.0-5.20); Red Cell Distribution Width 14.1 % (11.8-14.3); White Blood Cell 10.5 10^3/uL (4.4-10.8)
[2017-07-05 05:20] LABS: BUN/Creatinine Ratio 28.2; Calcium 8.6 mg/dL (8.5-10.1)
[2017-07-05] MEDS: ALBUTEROL SULF 2.5 MG/0.5ML(0.5%) NEB SOLN NEB SCH ×3 (05:50→13:18)
[2017-07-05] MEDS: IPRATROPIUM BROM 0.5 MG/2.5ML INH SOL NEB SCH ×3 (05:50→13:18)
[2017-07-05] MEDS ORDERED: METOPROLOL SUCCINATE XL 50 MG TAB PO SCH (10:00)
[2017-07-05] MEDS ORDERED: FUROSEMIDE 20 MG/2 ML VIAL IV SCH (10:00)
[2017-07-05 17:00] VITALS: BP_SYST 110; BP_SYST 111; BP_DIAS 61; BP_DIAS 67
[2017-07-05] MEDS ORDERED: AMITRIPTYLINE HCL 25 MG TAB PO SCH (22:00)
== END 2017-07-05 17:35 | disposition hospice, home (50) | DRG 291 ==
LOC: ER 21:02 → EDBD 21:02 → TELE 21:03
PROVIDERS: ADMIT Nurse Practitioner Family; ATTEND Internal Medicine
PROC: 5A09357 Assistance with Respiratory Ventilation, Less than 24 Consecutive Hours, Continuous Positive Airway Pressure (ICD-10-PCS; principal; 2017-07-04)
PROC: 5A09357 Assistance with Respiratory Ventilation, Less than 24 Consecutive Hours, Continuous Positive Airway Pressure (ICD-10-PCS; 2017-07-05)
DX: I11.0 Hypertensive heart disease with heart failure (principal); J96.21 Acute and chronic respiratory failure with hypoxia; I82.890 Acute embolism and thrombosis of other specified veins; J84.9 Interstitial pulmonary disease, unspecified; J44.1 Chronic obstructive pulmonary disease with (acute) exacerbation; I42.9 Cardiomyopathy, unspecified; I50.33 Acute on chronic diastolic (congestive) heart failure; E87.5 Hyperkalemia; Z51.5 Encounter for palliative care; Z85.3 Personal history of malignant neoplasm of breast; Z87.891 Personal history of nicotine dependence; Z99.81 Dependence on supplemental oxygen; I25.2 Old myocardial infarction; Z95.0 Presence of cardiac pacemaker
CPT/HCPCS: 36415; 36600; 51702; 71045; 80048; 80053; 81001; 82805; 82962; 83605; 83735; 83880; 84484; 85025; 87040; 93005; 94640; 94660; 96374; 96375; 99291; J1815